=== PATIENT | female | born 1980 ===

== ENCOUNTER 2019-11-16 15:30 | Outpatient (RCR) | payer OTHER, SELFPAY ==
--- NOTE | 2019-08-25 09:15 | PCPTNOTE ---
The treatment documented on this account is a continuation of the treatment documented on visit number [id number] in [employer] EMR . Please see documentation on both accounts to view progress. The Plan of Care has been transitioned and updated within the new V#. I have addressed and agree with the discipline specific Problems, Interventions, and Goals for the current certification period. Completed interventions, outcomes, and problems have been marked as Inactive to facilitate the copying of the Care plan routine for recurring accounts.
--- NOTE | 2019-09-01 18:03 | PTOPEVAL ---
Thank you for referring Wen to [facility]. She is scheduled to continue therapy 1x/week for 4 weeks. Please review, sign, date and return this plan of care ADEEL. I agree with and certify that the following plan of care is medically necessary. Referring Physician Date Admitting Provider: Attending Provider: PHYSICIAN NOT ON STAFF Referring Provider: *PT Outpatient Evaluation Start: 09/01/19 15:45 Freq: Status: Active Protocol: Document 09/01/19 17:03 JR (Rec: 09/01/19 17:57 JR [id number]) Therapy Assessment Status Assessment Status Assessment Status Re-evaluation Pain Assessment Pain Scale Pain Scale Used Numeric (1 - 10) Self Report Pain Assessment Right Neck Reported Pain Level 2 Other Pain Description no shooting pains like before, back pain may be worse than neck Pain Score Pain Score 2: Self Report Cervical and Lumbar ROM Cervical ROM Cervical Flexion (0-60) 55 Active in Degrees Cervical Extension (0-70) 45 Active in Degrees Cervical Rotation Right (0-90) 60 Active in Degrees Cervical Rotation Left (0-90) 80 Passive in Degrees Lumbar ROM Lumbar Flexion (0-90) 80 Active in Degrees Lumbar Flexion Active Floor Query Text:Hands to: Lumbar Extension (0-40) 30 Query Text:Active in Degrees Normal Lumbar Segmental Motion No: mildly limited Lumbar Comments symmetrical lumbar rotation Cervical and Lumbar Strength Lumbar Strength Lower Abdominal Strength 3 Fair Lumbar Functional Strength Comments limited multlifidi activation compared to quadratus lumborum activation Lower Extremity Strength Hip Strength Left Hip Flexion Strength 4 Good Hip Abduction Strength 4 Good Right Hip Flexion Strength 5 Normal Hip Abduction Strength 4 Good Knee Strength Bilateral Knee Flexion Strength 5 Normal Knee Extension Strength 5 Normal Upper Extremity Muscle Strength Scapular/Shoulder Bilateral Shoulder Flexion Strength 4 Good Shoulder Abduction Strength 5 Normal Shoulder Medial Rotation Strength 4+ Good + Shoulder Lateral Rotation Strength 4 Good Flexibility Testing Muscle Length Testing Teres Major Muscle Length (R) Moderate Tightness,(L) Moderate Tightness Two-Joint Hip Flexor Shortened Muscles Short (R) Iliopsoas,Short (L) Iliopsoas,Short (R) Rectus Femoris,Short (L) Rectus Femoris Piriformis w/Hip Flexion >90 Degrees
--- NOTE | 2019-10-01 18:32 | PTOPEVAL ---
PHYSICAL THERAPY PLAN OF CARE UPDATE AND PROGRESS REPORT Thank you for referring this patient to [facility]. Wen will be scheduled in PT 1x/week every other week for 4 visits to monitor pain symptoms and reinforce HEP. Please review, sign, date and return this plan of care ADEEL. I agree with and certify that the following plan of care is medically necessary. Referring Physician Date Re-evaluation Evaluation Information Problem Diagnosis right sided cervical radiculopathy, low back pain Subjective Information Wen is participating in PT Query Text:As Reported By Patient/ for right cervical Family radiculopathy and low back pain. 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 She reports the pain is 1/3 of what it was but is eager to work to ensure it stays this way. She tries to do different exercises and stretches, but her HEP needs to be reinforced. Her low back pain 'is pretty achey all the time.' She points along her spine to where the pain is located. Pain Assessment Pain Scale Pain Scale Used Numeric (1 - 10) Self Report Pain Assessment Lower Back Reported Pain Level 5 Other Pain Description kind of a constant in the low back lately Right Neck Reported Pain Level 2 Other Pain Description sitting at a desk more often, some arms pain returned Pain Score Pain Score 5,2: Self Report Cervical ROM Cervical Flexion (0-60) 55 Query Text:Active in Degrees Cervical Extension (0-70) 45 Query Text:Active in Degrees Cervical Rotation Right (0-90) 70 Query Text:Active in Degrees Cervical Rotation Left (0-90) 75 Query Text:Passive in Degrees Upper Extremity Muscle Strength Testing Scapular/Shoulder Bilateral Shoulder Flexion Strength 4 Good Shoulder Abduction Strength 5 Normal Shoulder Medial Rotation Strength 4+ Good + Shoulder Lateral Rotation Strength 4+ Good + Muscle Length Testing Muscle Length Testing Teres Major Muscle Length (R) Moderate Tightness,(L) Moderate Tightness Two-Joint Hip Flexor Shortened Muscles Short (R) Iliopsoas,Short (L) Ilio
--- NOTE | 2019-10-22 11:19 | PCPTNOTE ---
Patient called & cancelled scheduled appointment this date due to illness.
--- NOTE | 2019-12-07 13:18 | PCPTNOTE ---
This treatment is being continued on visit number [id number]. Please see documentation on both accounts to view progress. Completed interventions, outcomes, and problems have been marked as Inactive to facilitate the copying of the Care plan routine for recurring accounts.
== END 2019-11-16 23:59 | disposition home or self-care (01) ==
LOC: ANHPT 15:30
DX: M54.2 Cervicalgia (principal); M54.5 Low back pain; G89.29 Other chronic pain; M25.531 Pain in right wrist; M25.551 Pain in right hip
CPT/HCPCS: 97110; 97140

== ENCOUNTER 2019-12-11 13:28 | Outpatient (RCR) | payer OTHER, SELFPAY ==
--- NOTE | 2019-12-07 13:17 | PCPTNOTE ---
The treatment documented on this account is a continuation of the treatment documented on visit number [id number]. Please see documentation on both accounts to view progress. The Plan of Care has been transitioned and updated within the new V#. I have addressed and agree with the discipline specific Problems, Interventions, and Goals for the current certification period. Completed interventions, outcomes, and problems have been marked as Inactive to facilitate the copying of the Care plan routine for recurring accounts.
--- NOTE | 2019-12-14 07:54 | PCPTNOTE ---
Patient's appointment cancelled this date due to insurance issues.
--- NOTE | 2020-01-04 12:47 | PCPTNOTE ---
PHYSICAL THERAPY DISCHARGE Patient:Wen Valencia Date of :1980 Patient has not returned for any further treatments since 12/11/2019, therefore she will be discharged from therapy at this time. The goals have been partially achieved. She was being seen for cervical pain with radiculopathy and chronic low back pain. She was participating well with HEP for cervical symptoms with reported manageable symptoms; however, while understanding her HEP for her back pain, she continued to report persistent symptoms. Thank you for referring this patient to [facility]. Please review, sign, date and return this discharge summary ADEEL. I have been updated about the patient's current status and I agree with discharge from the above service at this time. Referring Physician Date
== END 2020-01-04 14:59 | disposition home or self-care (01) ==
LOC: ANHPT 13:28
DX: M54.5 Low back pain (principal); M54.2 Cervicalgia; G89.29 Other chronic pain; M25.531 Pain in right wrist; M25.551 Pain in right hip
CPT/HCPCS: 99199